=== PATIENT | female | born 1995 | race Caucasian/White ===

== ENCOUNTER 2021-11-16 18:59 | Outpatient (REF) | payer OTHER, SELFPAY ==
--- NOTE | ~2021-11-16 | MR_ITS ---
EXAMINATION: MR BRAIN WITHOUT AND WITH CONTRAST CLINICAL INFORMATION: Headaches and visual changes. Left-sided weakness. COMPARISON: None TECHNIQUE: Multiplanar, multisequence imaging of the brain was performed before and after the intravenous administration of 5 mL of Gadavist. Slightly limited study with motion artifacts. FINDINGS: No diffusion abnormalities are identified to suggest an acute or subacute infarct. The ventricles are normal in size. No mass effect or midline shift is seen. No brain parenchymal signal abnormality is noted. No extra-axial fluid collections are seen. The brainstem and cerebellum are normal. On postcontrast imaging, there is no abnormal parenchymal or leptomeningeal enhancement. The gradient refocused acquisition demonstrates no pathologic magnetic susceptibility artifact to indicate underlying acute or chronic blood products. The craniovertebral junction, marrow signal, and midline structures are normal. The major intracranial flow voids at the level of the [place] of [place] are preserved. The dural venous sinus flow voids are maintained. The mastoid air cells are well aerated. There is [id number] mucosal thickening with a dependent small fluid level in the left maxillary sinus. The left anterior ethmoid air cells are mucosal opacified and there is moderate mucosal thickening in the left frontal sinus cavity. Of note, there appears to be volume loss in the opacified left ethmoid air cells as compared to the right side. Moderate leftward nasal septal deviation and nasal septal spurring evident with distortion of the left middle turbinate. MR/MR head/brain wo/w con IMPRESSION: Normal MRI of the brain. Somewhat limited study with motion artifacts. Left-sided ostiomeatal complex pattern of sinus disease with scattered aerosolized secretions and moderate mucosal thickening in the left frontal and left maxillary sinus cavities. Small dependent fluid level as well. Correlate for any symptoms of acute sinusitis. Mucosal opacified left anterior ethmoid air cells with question of potential atelectatic phenomenon. Recommend ENT follow-up evaluation.
== END 2021-11-16 19:00 | disposition home or self-care (01) ==
LOC: HO.MRI 18:59
PROVIDERS: Visit Provider Psychiatry & Neurology Neurology
DX: R51.0 Headache with orthostatic component, not elsewhere classified (principal); R20.0 Anesthesia of skin; M62.81 Muscle weakness (generalized); H54.7 Unspecified visual loss
CPT/HCPCS: 70553; A9585